=== PATIENT | male | born 1995 ===

== ENCOUNTER 2016-11-25 23:15 | Emergency (ER) | payer SELFPAY ==
[2016-11-25 23:44] VITALS: O2SAT 99
--- NOTE | 2016-11-26 01:02 | C.PDOC ---
History Of Present Illness 21 y/o male c/o rash to the bilateral lower legs for 3 days. Rash worse with itching with the patient reporting discomfort to the calves, greater on the left. Denies pain, fever, previous known allergens, or any other complaints. Time Seen by Provider: 11/25/16 23:48 Chief Complaint (Nursing): Abnormal Skin Integrity History Per: Patient History/Exam Limitations: no limitations Onset/Duration Of Symptoms: Days (3) Current Symptoms Are (Timing): Still Present Location Of Injury: Right: Leg, Left: Leg Quality Of Symptoms: Itching Severity: Mild Recent travel outside of the [place]: No Additional History Per: Patient Past Medical History Reviewed: Historical Data, Nursing Documentation, Vital Signs Vital Signs: Last Vital Signs Temp 97.9 F 11/26/16 01:22 Pulse 75 11/26/16 01:22 Resp 19 11/26/16 01:22 BP 130/74 11/26/16 01:22 Pulse Ox 99 11/26/16 05:07 Family History: States: Unknown Family Hx - Social History Hx Alcohol Use: Yes Hx Substance Use: No - Immunization History Hx Tetanus Toxoid Vaccination: No Hx Influenza Vaccination: No Hx Pneumococcal Vaccination: No Review Of Systems Constitutional: Negative for: Fever Skin: Positive for: Rash Physical Exam - Physical Exam Appears: Non-toxic, No Acute Distress Skin: Warm, Dry, Rash (Diffuse erythematous maculopapular rash to the posterior bilateral legs. No warmth, no postule, no fluctuance, no streaking.) Head: Atraumatic, Normacephalic Eye(s): bilateral: Normal Inspection, PERRL Extremity: Normal ROM, Capillary Refill (<2secs) Neurological/Psych: Oriented x3 Gait: Steady ED Course And Treatment O2 Sat by Pulse Oximetry: 99 (RA) Pulse Ox Interpretation: Normal Progress Note: Plans: Prednisone, Benadryl. Patient is in no acute distress at this time and is improving with the rash. Medication was given and patient was advised to follow up with his PMD for further evaluation and to return if symptoms worsens. Disposition Counseled Patient/Family Regarding: Diagnosis - Disposition Disposition: HOME/ ROUTINE Disposition Time: 00:59 Condition: STABLE Additional Instructions: Take meds as directed Follow up in clinic Elevate legs Return to ER if worse Prescriptions: DiphenhydrAMINE [Benadryl] 50 mg PO Q6H #20 cap Hydrocortisone 1% Cream [Cortizone 1% Cream] 1 appl TP BID #60 g predniSONE [Prednisone] 40 mg PO DAILY #8 tab Instructions: Contact Dermatitis (ED) Forms: [facility] (Greek) - Clinical Impression Clinical Impression: Allergic contact dermatitis - Scribe Statement The provider has reviewed the documentation as recorded by the Scribe Ilya boyce All medical record entries made by the Joelibe were at my direction and personally dictated by me. I have reviewed the chart and agree that the record accurately reflects my personal performance of the history, physical exam, medical decision making, and the department course for this patient. I have also personally directed, reviewed, and agree with the discharge instructions and disposition.
[2016-11-26 01:24] VITALS: BP 130/74; PULSE 75; RESP 19; TEMP 97.9
== END 2016-11-26 01:22 | disposition home or self-care (01) ==
LOC: C.ER 23:15
DX: L23.9 Allergic contact dermatitis, unspecified cause (principal)